=== PATIENT | female | born 1985 | race Caucasian/White ===

== ENCOUNTER 2017-02-12 06:02 | Emergency (ER) | payer OTHER ==
[~2017-02-12] VITALS: Ht 167.6 cm; Wt 70.0 kg
[~2017-02-12 06:02] MED LIST: HYDROCODON-ACE1 EAC7 PO; MIRALAX255 GM PO; ULTRAM50 MG PO
[2017-02-12 06:52] LABS: EOSINOPHIL (%) 0.3 % (0-5); HEMATOCRIT 41.1 % (36.0-46.0); IMMATURE GRANULOCYTE (%) 0.3 % (0.0-0.7); INSTRUMENT ABS NEUTROPHIL CT 7.8 K/uL; LYMPHOCYTE COUNT 0.6 K/uL (1.0-2.8); MCH 30.2 PG (29.0-34.0); MCHC 34.8 G/DL (30.0-36.0); MCV 86.7 FL (83-99); MEAN PLAT.VOLUME 11.6 uM^3 (9.5-12.4); MONOCYTE (%) 4.1 % (3-12); MONOCYTE COUNT 0.4 K/uL (0-0.8); NEUTROPHIL (%) 88.5 % (45-76); NEUTROPHIL COUNT 7.8 K/uL (1.8-6.4); PLATELET COUNT 169 K/uL (156-360); RBC DIS.WIDTH-CV 11.8 % (11.8-14.6); RBC DIS.WIDTH-SD 37.9 % (39-53); RED BLOOD COUNT 4.74 M/uL (3.80-5.20); WHITE BLOOD COUNT 8.8 K/uL (4.1-10.2)
[2017-02-12] MEDS ORDERED: LEXAPRO5 MG PO (07:18)
[2017-02-12 07:21] LABS: ANION GAP 9 MEQ/L (2-14); CHLORIDE 107 MEQ/L (99-109); POTASSIUM 3.5 MEQ/L (3.7-5.4); SAMPLE HEMOLYSIS CHECK 0; SAMPLE ICTERIC CHECK 0; SAMPLE LIPEMIA CHECK 0; SODIUM 139 MEQ/L (136-147); TOTAL BILIRUBIN 2.4 MG/DL (0.0-1.0)
[2017-02-12 07:23] LABS: ADD MIUA? YES; BILIRUBIN NEGATIVE; BLOOD NEGATIVE; COLOR YELLOW ((YELLOW)); GLUCOSE (STRIP) NEGATIVE; KETONES 80; LEUKOCYTES NEGATIVE; NITRITE NEGATIVE; PROTEIN (STRIP) 30; SPECIFIC GRAVITY 1.015 (1.000-1.030); UROBILINOGEN 0.2 MG/DL (0.2-1.0)
[2017-02-12 07:25] LABS: BACTERIA RARE /HPF; EPITHELIAL CELLS RARE /HPF; MUCUS TRACE /LPF; RED BLOOD CELLS 0-5 /HPF (0-5); UCUL ADDED? NO; WHITE BLOOD CELLS 0-5 /HPF (0-5)
[2017-02-12 07:27] LABS: ALKALINE PHOSPHATASE 63 IU/L (3-129); GFR ESTIMATE (CALCULATED) > 59 mL/min/; GLUCOSE 93 mg/dL (70-99); LIPASE 16 U/L (1.0-51.0); UREA NITROGEN (BUN) 8 mg/dL (9-23)
[2017-02-12 07:31] LABS: QUANTITATIVE HCG < 4.0 MIU/ML
[2017-02-12] MEDS ORDERED: ZOFRAN ODT4 MG PO (09:13)
[2017-02-12 09:30] VITALS: BP 107/65
== END 2017-02-12 09:58 | disposition home or self-care (01) ==
LOC: EME → EDBD 06:02 → EME 06:02
PROVIDERS: Emergency Medicine
DX: R10.13 Epigastric pain (principal); R11.2 Nausea with vomiting, unspecified; Z87.891 Personal history of nicotine dependence; Z90.49 Acquired absence of other specified parts of digestive tract; Z90.710 Acquired absence of both cervix and uterus; Z88.6 Allergy status to analgesic agent; Z91.041 Radiographic dye allergy status
CPT/HCPCS: 76705; 80053; 81003; 83690; 84702; 85025; 99281; 99285; J0780; J2405; J3010; J7030

== ENCOUNTER 2017-04-17 14:54 | Emergency (ER) | payer OTHER ==
[~2017-04-17] VITALS: Ht 167.6 cm; Wt 72.0 kg
[~2017-04-17 14:54] MED LIST changes: +LEXAPRO5 MG PO; +ZOFRAN ODT4 MG PO
[2017-04-17 16:15] LABS: EOSINOPHIL (%) 2.1 % (0-5); EOSINOPHIL COUNT 0.1 K/uL (0-0.3); HEMATOCRIT 40.9 % (36.0-46.0); IMMATURE GRANULOCYTE (%) 0.4 % (0.0-0.7); INSTRUMENT ABS NEUTROPHIL CT 3.8 K/uL; LYMPHOCYTE COUNT 1.2 K/uL (1.0-2.8); MCH 30.7 PG (29.0-34.0); MCHC 33.7 G/DL (30.0-36.0); MCV 90.9 FL (83-99); MEAN PLAT.VOLUME 11.5 uM^3 (9.5-12.4); MONOCYTE (%) 7.6 % (3-12); MONOCYTE COUNT 0.4 K/uL (0-0.8); NEUTROPHIL (%) 67.5 % (45-76); NEUTROPHIL COUNT 3.8 K/uL (1.8-6.4); PLATELET COUNT 157 K/uL (156-360); RBC DIS.WIDTH-CV 12.1 % (11.8-14.6); RBC DIS.WIDTH-SD 40.5 % (39-53); WHITE BLOOD COUNT 5.7 K/uL (4.1-10.2)
[2017-04-17 16:23] LABS: CHLORIDE 106 mEq/L (99-109); POTASSIUM 3.9 mEq/L (3.7-5.4); SODIUM 141 mEq/L (136-147)
[2017-04-17 16:25] LABS: GLUCOSE 86 mg/dL (70-99)
[2017-04-17 16:26] LABS: ANION GAP 9 MEQ/L (2-14)
[2017-04-17 16:27] LABS: TOTAL BILIRUBIN 0.6 mg/dL (0.0-1.0)
[2017-04-17 16:29] LABS: ALKALINE PHOSPHATASE 90 IU/L (3-129); GFR ESTIMATE (CALCULATED) > 59 mL/min/
[2017-04-17 16:30] LABS: UREA NITROGEN (BUN) 9 mg/dL (9-23)
[2017-04-17 16:44] VITALS: BP 133/91
== END 2017-04-17 16:45 | disposition left against medical advice (07) ==
LOC: EME 14:54
PROVIDERS: Physician Assistant Medical
DX: R51 Headache (principal); R55 Syncope and collapse; F41.9 Anxiety disorder, unspecified; F32.9 Major depressive disorder, single episode, unspecified; Z85.41 Personal history of malignant neoplasm of cervix uteri; Z90.710 Acquired absence of both cervix and uterus; Z87.891 Personal history of nicotine dependence
CPT/HCPCS: 80053; 81003; 85025; 93005; 99281; 99284; J1885; J2765; J7030

== ENCOUNTER 2017-12-30 08:28 | Emergency (ER) | payer OTHER ==
[~2017-12-30] VITALS: Ht 167.6 cm; Wt 68.9 kg
[2017-12-30 08:52] LABS: HEMATOCRIT 42.5 % (36.0-46.0); HEMOGLOBIN 14.7 G/DL (11.9-15.5); MCH 31.1 PG (29.0-34.0); MCHC 34.6 G/DL (30.0-36.0); MCV 89.9 FL (83-99); PLATELET COUNT 189 K/uL (156-360); RBC DIS.WIDTH-CV 11.8 % (11.8-14.6); RBC DIS.WIDTH-SD 38.6 % (39-53); RED BLOOD COUNT 4.73 M/uL (3.80-5.20); WHITE BLOOD COUNT 5.8 K/uL (4.1-10.2)
[2017-12-30 09:00] LABS: ALBUMIN 4.5 g/dL (3.2-4.8); CHLORIDE 104 mEq/L (99-109); SODIUM 139 mEq/L (136-147)
[2017-12-30 09:02] LABS: GLUCOSE 79 mg/dL (70-99); TOTAL PROTEIN 7.5 g/dL (6.4-8.3)
[2017-12-30 09:04] LABS: TOTAL BILIRUBIN 1.9 mg/dL (0.0-1.0)
[2017-12-30 09:06] LABS: ALKALINE PHOSPHATASE 74 IU/L (3-129); GFR ESTIMATE (CALCULATED) > 59 mL/min/
[2017-12-30 09:07] LABS: UREA NITROGEN (BUN) 8 mg/dL (9-23)
[2017-12-30 09:08] LABS: AST (GOT) 15 IU/L (2-34)
[2017-12-30 09:09] LABS: ALT (GPT) 21 IU/L (3-49); LIPASE 13 U/L (1.0-51.0)
[2017-12-30 09:15] LABS: QUANTITATIVE HCG < 4.0 MIU/ML
[2017-12-30 10:47] VITALS: BP 150/90
== END 2017-12-30 10:48 | disposition left against medical advice (07) ==
LOC: EME 08:28
DX: R11.0 Nausea (principal); R42 Dizziness and giddiness; I45.10 Unspecified right bundle-branch block; Z53.21 Procedure and treatment not carried out due to patient leaving prior to being seen by health care provider
CPT/HCPCS: 80053; 81003; 83690; 84702; 85027; 93005

== ENCOUNTER → 2018-02-02 | Outpatient (CLI) | payer OTHER ==
[~2018-02-02] VITALS: Ht 167.6 cm; Wt 68.9 kg
== END | disposition home or self-care (01) ==
LOC: AMB 10:24
DX: K29.70 Gastritis, unspecified, without bleeding (principal)
CPT/HCPCS: 88305; 88342 TC